=== PATIENT | male | born 1965 | race Caucasian/White ===

== ENCOUNTER 2016-06-25 09:27 | Outpatient (CLI) | payer OTHER ==
--- NOTE | 2016-06-25 12:21 | DIAGNOSTIC IMAGING REPORT ---
PROCEDURE: MR UPPER EXTREMITY W/O CONT-LT INDICATION: LEFT SHOULDER DISLOCATION, initial encounter TECHNIQUE: PD and FAT-SAT PD, axial, and coronal-oblique images. PD and STIR sagittal-oblique images. COMPARISON: Left shoulder x-ray 03/04/2016 FINDINGS: Grade 3 AC joint separation and type 2 acromion resulting in mild impingement. Partial insertional tear of the supraspinatus and subscapularis tendons (articular side). There is also a small subdeltoid effusion, bursitis versus possible full-thickness tear. Normal glenohumeral ligaments. Suspect a small tear of the labrum superiorly anteriorly. Normal bicipital tendon. Osseous structures are unremarkable. IMPRESSION: 1. Grade 3 AC joint separation 2. Mild impingement 3. Partial insertional tear of the supraspinatus and subscapularis tendons (articular side). There is a small subdeltoid effusion which could represent bursitis or possible full-thickness tear 4. Probable labral tear superoanteriorly
[2016-08-31] MEDS ORDERED: IBUPROFEN800 MG PO (10:56)
[2016-08-31] MEDS ORDERED: CYCLOBENZAPRINE10 MG PO (10:57)
[2016-08-31] MEDS ORDERED: VICODIN EQUIVAL1 TAB PO (10:58)
[2016-08-31] MEDS ORDERED: METHOCARBAMOL500 MG PO (10:59)
[2016-08-31] MEDS ORDERED: HYDROCHLOROTHIA50 MG PO (10:59)
[2016-08-31] MEDS ORDERED: LISINOPRIL20 MG PO (11:00)
== END 2016-06-25 23:00 ==
LOC: MRI SRH 09:27
DX: S43.102A Unspecified dislocation of left acromioclavicular joint, initial encounter (principal); S46.812A Strain of other muscles, fascia and tendons at shoulder and upper arm level, left arm, initial encounter; M25.412 Effusion, left shoulder

== ENCOUNTER 2016-08-24 14:16 | Outpatient (CLI) | payer OTHER ==
--- NOTE | 2016-08-24 14:45 | DIAGNOSTIC IMAGING REPORT ---
PROCEDURE: XR CHEST 2 VIEW INDICATION: PRE OP TECHNIQUE: PA and lateral views. COMPARISON: None. FINDINGS: Lungs are clear. Heart and mediastinum are normal. Thorax is normal. IMPRESSION: 1. Negative chest.
[2016-08-31] MEDS ORDERED: IBUPROFEN800 MG PO (10:56)
[2016-08-31] MEDS ORDERED: CYCLOBENZAPRINE10 MG PO (10:57)
[2016-08-31] MEDS ORDERED: VICODIN EQUIVAL1 TAB PO (10:58)
[2016-08-31] MEDS ORDERED: HYDROCHLOROTHIA50 MG PO (10:59)
[2016-08-31] MEDS ORDERED: METHOCARBAMOL500 MG PO (10:59)
[2016-08-31] MEDS ORDERED: LISINOPRIL20 MG PO (11:00)
== END 2016-08-24 23:00 ==
LOC: RT SRH 14:16
DX: Z01.810 Encounter for preprocedural cardiovascular examination (principal); Z01.811 Encounter for preprocedural respiratory examination; Z01.812 Encounter for preprocedural laboratory examination
CPT/HCPCS: 90004; 90074; 90100; 94001; 94060; 95059

== ENCOUNTER 2016-09-04 05:57 | Day surgery (SDC) | payer OTHER ==
--- NOTE | 2016-08-24 19:32 | CONSULTATION REPORT ---
DATE OF CONSULTATION: 08/24/2016 CHIEF COMPLAINT: 1. Left shoulder pain HISTORY OF PRESENT ILLNESS: The patient injured his left shoulder. He has had a dislocation of his acromioclavicular joint. There is partial tear of his rotator cuff tendons and he is being admitted for repair of the same. I have explained to him the nature of the procedure, where the incisions would be. I would go about starting with an arthroscopy of the shoulder just to make sure there is not some other internal injury or problem that might cause him not to get well from the repair of his AC separation and then we would make an incision anteriorly, plan to use a cadaver tendon graft, resect the distal clavicle and pull the clavicle down into position and repair of the coracoclavicular ligaments. The risk of failure, of continued pain, of stiffness of the shoulder, of problems with the use of it, of infection, of anesthesia complications were all explained to him and he understands and accepts and would like to proceed. MEDICAL/SURGICAL HISTORY: Past history: Positive in that he does suffer from diverticulitis and says he has some chronic gastrointestinal bleeding from that. He says there is never a time when it does not bleed at least a little bit, but sometimes worse than others, so far he has done reasonably well in the near past and has not had much problem. He also suffers from hypertension and is on hydrochlorothiazide 50 mg a day and lisinopril 10 mg a day for that and it is well-controlled with that. He has had prior surgery for a deviated nasal septum, but no other surgical procedures. He denies other serious medical illness. MEDICATIONS: 1. His only other medication is hydrocodone, which he takes 1 or 2 every 6-8 hours as needed for pain. 2. History of taking Mobic once a day, also for his pain. ALLERGIES: 1. NO KNOWN ALLERGIES. SOCIAL HISTORY: He is a smoker, he is trying to quit; I encouraged him to do so. FAMILY HISTORY: Noncontributory. REVIEW OF SYSTEMS: Negative for seizure disorder or loss of consciousness. Cardiorespiratory: He has not had any chest pain, shortness of breath, fever, chills. Gastrointestinal: He does have some problems with the diverticulitis, which comes sporadically and is unpredictable. Genitourinary: He has had no dysuria or hematuria. Musculoskeletal: He has had pain in the left shoulder as described above. Hematologic: He has had problems with nosebleeds and said he periodically will get a nosebleed just most recently from coughing, and no rhyme or reason to it. He said he has been doing that ever since he was a child and so far as he knows, does not have a bleeding disorder. PHYSICAL EXAMINATION: VITAL SIGNS: Height is 69 inches, weight 177, BMI 26, blood pressure 115/79, pulse 83, respiratory rate of 18, and temperature 98.6. HEENT: His head is normocephalic and atraumatic. His eyes are clear. His hearing is grossly normal. There is no drainage from the ear canals. The patient has no facial asymmetry. NECK: There is no jugular venous distention. CHEST: Symmetrical. HEART: Regular rate and rhythm without murmur. LUNGS: Clear to auscultation. ABDOMEN: Flat without any distention. EXTREMITIES: At the shoulder, he does have a prominence of the distal clavicle and some asymmetry of the shoulders. He lacks range of motion as well, having only 90 degrees of abduction present at this time. He is having constant pain in it and there is some pain and tenderness at the distal clavicle and over the AC joint and for the remainder of the shoulder examination, we will refer you to my previous clinic notes and a review of the MRI scan, as well. LAB/IMAGING: His MRI does show him to have grade 3 AC separation and a partial tear of the rotator cuff. IMPRESSION: 1. Grade 3 acromioclavicular joint separation and partial rotator cuff tear. PLAN: Will be as noted above for reconstruction and arthroscopy of the joint as well, possible repair of the rotator cuff, if necessary. He will come then on 2016 for his surgery barring unforeseen complication or problem.
[~2016-09-04] VITALS: Ht 177.8 cm; Wt 79.7 kg
[~2016-09-04 05:57] MED LIST: CYCLOBENZAPRINE10 MG PO; HYDROCHLOROTHIA50 MG PO; IBUPROFEN800 MG PO; LISINOPRIL20 MG PO; METHOCARBAMOL500 MG PO; VICODIN EQUIVAL1 TAB PO
--- NOTE | 2016-09-04 11:08 | Postoperative Progress Note ---
Postop Progress Note Preoperate Diagnosis: Labral and partial RC tears, AC dislocation left shoulder Postoperative Diagnosis: AC dislocation, labral tear, impingement left shoulder. Surgeon: Tong Magana MD Anesthesia: General ETT Findings: AC disloaction, impingement, small superior labral tear left shoulder. Procedure: Left shoulder arthroscopy with labral debridement and acromioplasty. Open distal clavicle resection and acromioclavicular ligament reconstruction. Complications? No Condition: Stable EBL: 50cc Blood Administered: 0 Specimen(s) removed? Yes Specimen removed/disposition: Distal clavicle Grafts or Implants? Yes Graft/Implant type: Tendon graft . (See nursing notes for details of grafts/implants)
[2016-09-04] MEDS ORDERED: OXAYDO5 MG PO (11:22)
--- NOTE | 2016-09-04 11:23 | Provider's Discharge Care Plan ---
Problem, Goal, Plan Problem List 1. Acromioclavicular joint separation
--- NOTE | 2016-09-04 11:23 | Provider's Discharge Care Plan ---
Problem, Goal, Plan Problem List 1. Acromioclavicular joint separation
--- NOTE | 2016-09-04 11:53 | DIAGNOSTIC IMAGING REPORT ---
PROCEDURE: XR SHOULDER 1 VIEW - LEFT INDICATION: postop TECHNIQUE: AP view. COMPARISON: Left shoulder x-ray 03/04/2016 FINDINGS: Status post repair of grade 3 AC joint separation, now with normal AC joint. Glenohumeral joint is unremarkable. No fracture or dislocation. There are postsurgical changes of the soft tissues. IMPRESSION: 1. Status post repair of grade 3 left AC joint separation.
--- NOTE | 2016-09-04 12:09 | OPERATIVE REPORT ---
DATE OF SURGERY: 09/04/2016 SURGEON: KEL SCHWARTZ MD PREOPERATIVE DIAGNOSIS: 1. Acromioclavicular joint dislocation, probable superior labral tear, partial rotator cuff tear with impingement of the shoulder POSTOPERATIVE DIAGNOSIS: 1. Acromioclavicular joint dislocation, small superior labral tear and impingement, left shoulder. PROCEDURE PERFORMED: 1. ESTIMATED BLOOD LOSS: About 50 mL. COMPLICATIONS: None. PATHOLOGY SPECIMEN: Distal clavicle, which was resected. SURGICAL TECHNIQUE: The patient was taken to the operating room, was given general anesthetic, was placed in a beach chair position on the operating table, the arm , shoulder, and base of the neck were all prepped and draped in the usual sterile fashion. A small incision was made posteriorly. The scope inserted into the joint. We could see immediately his biceps tendon actually was in excellent condition and looked good. His rotator cuff was inspected and was found to be in surprisingly good condition after having seen the MRI scan but the rotator cuff attachment looked to be in good condition. The articular surface of the humerus was in almost perfect condition. The glenoid was somewhat rough and irregular with maybe some grade 1-2 chondromalacia. There was a small tear of the superior labrum, but the attachment was secure. We just debrided the labral fraying and tearing using an anterior approach with another incision anteriorly and a shaver inserted anteriorly. No other abnormalities were seen. No loose bodies encountered. The remainder of the labrum looked to be in good condition and the attachment superiorly looked to be stable. The scope was removed and placed in the subacromial space. The soft tissue debrided from the undersurface of the anterior margin of the acromion and then the bur was introduced from the posterior portal and the scope in an anterolateral portal and we did an acromioplasty using a barrel bur to leave a nice smooth flat service to the underside of the acromion and then finishing off by reversing and putting the scope posteriorly and the bur anterolaterally. The patient then had a more extensive incision made in the anterior and superior of the shoulder starting from the anterior portal where we had done our arthroscopy and extending up over the top of the distal clavicle. The deltoid attachment and the deltoid muscle fibers and what remained of the acromioclavicular joint capsule were split from medial to lateral, right over the midsection of the clavicle, exposing the distal clavicle. The joint surface there was markedly irregular. There was no normal articular cartilage that was remaining and resection of the distal clavicle was performed with a small sagittal saw, leaving slightly more bone superiorly than inferiorly and resecting this slightly obliquely. A drill hole was then made with a 0.25 inch drill at about the two-thirds one- third point anterior posteriorly, 2/3 of the bone anteriorly and 1/3 posteriorly at about 1 cm medial to the distal clavicle and this was chamfered and contoured with the bur and curettes. Then we did a gentle soft tissue dissection down around the coracoid and passed first the wire suture passer and then a dilator and then finally a posterior tibial tendon graft using #2 nonabsorbable braided sutures and placed using locking Saltillo type of suture through the end of the tendon and then this was passed up through the hole in the clavicle and pulled over the top of the clavicle. The tendon ends overlapped and then sutured with more of the same #2 nonabsorbable braided suture using multiple sutures secured as best as humanly possible and then resecting the posterior aspect of the tendon about 1 cm or maybe 1.5 cm posterior to where the hole was in the clavicle and just pushing the end of graft down over the top of the posterior aspect of the clavicle and around behind it, and then sewing the capsule and deltoid muscle over the top using #1 Polysorb running suture. The subcutaneous layer was closed with 2-0 Polysorb suture and then the subcuticular skin closure was performed with a running 3-0 Polysorb suture and the arthroscopy incisions anterolateral and posterior were closed with the same suture. He was injected at all the incisions with some 0.5% Marcaine without epinephrine , dressed with Xeroform and ABD pads. These were taped securely in place, placed in an arm sling, awakened and taken to the recovery room in stable condition.
[2016-09-04 14:22] VITALS: BP 116/87
== END 2016-09-04 14:10 | disposition home or self-care (01) ==
LOC: SCU SRH 05:57 → OR SRH 05:57
PROVIDERS: Orthopaedic Surgery
PROC: 0RBK4ZZ Excision of Left Shoulder Joint, Percutaneous Endoscopic Approach (ICD-10-PCS; principal; 2016-09-04 07:30)
PROC: 0RNK4ZZ Release Left Shoulder Joint, Percutaneous Endoscopic Approach (ICD-10-PCS; principal; 2016-09-04 07:30)
PROC: 0MQ20ZZ Repair Left Shoulder Bursa and Ligament, Open Approach (ICD-10-PCS; principal; 2016-09-04 07:30)
PROC: 0PBB0ZZ Excision of Left Clavicle, Open Approach (ICD-10-PCS; principal; 2016-09-04 07:30)
DX: S43.085A Other dislocation of left shoulder joint, initial encounter (principal); M75.112 Incomplete rotator cuff tear or rupture of left shoulder, not specified as traumatic; Z72.0 Tobacco use; S43.432A Superior glenoid labrum lesion of left shoulder, initial encounter; M94.212 Chondromalacia, left shoulder; R05 Cough; I10 Essential (primary) hypertension